=== PATIENT | female | born 1980 ===

== ENCOUNTER 2023-01-18 19:34 | Emergency (ER) | payer MEDICAID ==
[~2023-01-18] VITALS: Ht 167.6 cm; Wt 81.8 kg
[~2023-01-18 19:34] MED LIST: BUPR100T15 PO; BUSP10TA10 PO; DOCO2CRE TP; DULO60CA65 PO; FURO20TA4 PO; GABA-530 PO; HYDR-3686 PO; LACT10SO7 PO; LEVO50TA8 PO; MULT-25 PO; NICO-687 TD; POTA-197 PO; QUET25TA36 PO; SPIR50TA5 PO
[2023-01-18 20:24] LABS: BASOPHILS % (AUTO) 0.3 % (0-1); EOSINOPHILS # (AUTO) 0.1 X10'3 (0-0.9); EOSINOPHILS % (AUTO) 1.2 % (0-6); HEMATOCRIT 36.1 % (35.0-45.0); HEMOGLOBIN 12.5 g/dl (12.0-16.0); LYMPHOCYTES # (AUTO) 4.5 X10'3 (1.1-4.8); LYMPHOCYTES % (AUTO) 43.5 % (21-51); MEAN CORPUSCULAR HEMOGLOBIN 31.3 PG (27.0-31.0); MEAN CORPUSCULAR HGB CONC 34.5 g/dL (33.0-36.5); MEAN CORPUSCULAR VOLUME 90.7 FL (78-98); MEAN PLATELET VOLUME 7.5 FL (7.4-10.4); MONOCYTES # (AUTO) 0.5 X10'3 (0-0.9); MONOCYTES % (AUTO) 4.4 % (2-12); NEUTROPHILS # (AUTO) 5.3 X10'3 (1.8-7.7); NEUTROPHILS % (AUTO) 50.6 % (42-75); PLATELET COUNT 106 X10'3 (140-440); RED BLOOD COUNT 3.98 X10'6 (4.20-5.60); RED CELL DISTRIBUTION WIDTH 15.8 % (11.5-14.5); WHITE BLOOD COUNT 10.4 X10'3 (4.5-11.0)
[2023-01-18 20:43] LABS: ALANINE AMINOTRANSFERASE 57 U/L (12-78); ALBUMIN 3.4 G/DL (3.4-5.0); ALBUMIN/GLOBULIN RATIO 0.7 (1.1-1.5); ALKALINE PHOSPHATASE 114 IU/L (46-116); ANION GAP 14 (8-16); ASPARTATE AMINO TRANSFERASE 92 U/L (10-37); BILIRUBIN,TOTAL 0.7 MG/DL (0.1-1.0); BLOOD UREA NITROGEN 9 MG/DL (7-18); CALCIUM 8.5 MG/DL (8.5-10.1); CHLORIDE 108 MMOL/L (99-107); GLUCOSE 86 MG/DL (70-104); POTASSIUM 3.8 MMOL/L (3.5-5.1); SODIUM 144 MMOL/L (135-145); TOTAL CARBON DIOXIDE 21.8 MMOL/L (24-32); TOTAL PROTEIN 8.2 G/DL (6.4-8.2); eGFR 69 ML/MIN
[2023-01-18 20:45] LABS: ETHANOL 0.365 GM/DL (0.0-0.010)
[2023-01-18] MEDS ORDERED: magnesium 2GM in 50ml NS 50 ML IV ONE (21:45)
[2023-01-18] MEDS ORDERED: thiamine 100mg/ml 2ml inj. IM ONE (21:45)
[2023-01-18] MEDS ORDERED: normal saline 1000ml 1,000 ML IV ONE (21:45)
[2023-01-18] MEDS ORDERED: metoclopramide 5 mg/ml inj IM ONE (21:45)
[2023-01-18] MEDS ORDERED: LORazepam 2 mg/ml vial IV ONE (21:45)
[2023-01-19] MEDS ORDERED: normal saline 1000ML IV soln IVB ONE (07:00)
[2023-01-19 08:48] VITALS: BP 112/77
--- NOTE | 2023-01-19 09:22 | NUR ---
Patient states she wants to leave and is getting dressed. Patient informed she is on a 1799 hold ordered per MD for SI. Patient offered food. All questions and concerns addressed. Patient within view of staff at all times.
[2023-01-19 09:35] LABS: CLARITY,URINE SLIGHTLY CLOUDY (Clear); COLOR,URINE YELLOW (Yellow); GLUCOSE, URINE NEGATIVE (Neg); KETONES,URINE 40 mg/dl (Neg); LEUKOCYTE ESTERASE ,URINE NEGATIVE (Neg); NITRITES, URINE NEGATIVE (Neg); OCCULT BLOOD,URINE LARGE (Neg); PROTEIN,URINE NEGATIVE (Neg); UA COLLECTION TYPE CLN CATCH MIDSTREAM; URINE HCG NEGATIVE (NEG)
--- NOTE | 2023-01-19 09:35 | NUR ---
PATIENT EVALUATED BY DR GARCIA, PATIENT VOICED SHE WANTS TO LEAVE THE HOSPITAL AND TOOK OUT HER OWN IV. PATIENT LEFT HOSPITAL SAFELY, GAIT STEADY AND BALANCED.
[2023-01-19 09:48] LABS: URINE AMPHETAMINE SCREEN NEGATIVE (Neg); URINE BARBITUATE SCREEN NEGATIVE (Neg); URINE BENZODIAZEPINES SCREEN POSITIVE (Neg); URINE CANNABINOID SCREEN NEGATIVE (Neg); URINE COCAINE SCREEN NEGATIVE (Neg); URINE METHADONE SCREEN NEGATIVE (Neg); URINE OPIATE SCREEN NEGATIVE (Neg); URINE PHENCYCLIDINE SCREEN NEGATIVE (Neg)
[2023-01-19 09:59] LABS: BACTERIA,URINE 3+ /HPF (Neg); MUCUS STRANDS MODERATE /LPF (Neg); RBC,URINE TNTC /HPF (0-2); SQUAMOUS EPITHELIAL CELL,UR FEW /LPF (FEW); WBC,URINE 0-4 /HPF (0-4)
[2023-01-20] MEDS ORDERED: NO HOME MEDS (22:21)
[2023-01-29] MEDS ORDERED: NALT50TA PO (07:11)
[2023-01-29] MEDS ORDERED: gabapentin capsule PO (07:11)
[2023-01-29] MEDS ORDERED: LACT10SO7 PO (07:11)
[2023-01-29] MEDS ORDERED: BUSP10TA16 PO (07:11)
[2023-01-29] MEDS ORDERED: QUET100T34 PO (07:11)
[2023-01-29] MEDS ORDERED: BUPR-230 PO (07:11)
[2023-01-29] MEDS ORDERED: DULO30CA52 PO (07:11)
[2023-01-29] MEDS ORDERED: NICO-687 TD (07:11)
[2023-01-29] MEDS ORDERED: MULT-25 PO (07:11)
[2023-01-29] MEDS ORDERED: LEVO50TA8 PO (07:11)
[2023-01-29] MEDS ORDERED: SPIR50TA5 PO (07:11)
[2023-01-29] MEDS ORDERED: DULO60CA65 PO (07:13)
[2023-01-29] MEDS ORDERED: GABA300C PO (07:14)
== END 2023-01-19 16:10 | disposition home or self-care (01) ==
LOC: MERGE 19:35 → ER 19:35
DX: F10.129 Alcohol abuse with intoxication, unspecified (principal); R45.851 Suicidal ideations; I10 Essential (primary) hypertension; E07.9 Disorder of thyroid, unspecified; Z88.5 Allergy status to narcotic agent; Z88.8 Allergy status to other drugs, medicaments and biological substances
CPT/HCPCS: 36415; 80053; 80305; 80320; 81001; 81025; 84443; 85025; 96361; 96372; 96374; 96375; 99285; J2060; J2765; J3411; J3475; J7030; A4615